=== PATIENT | female | born 1995 | race African-American/Black ===

== ENCOUNTER → 2018-02-16 | Outpatient (CLI) | payer OTHER ==
--- NOTE | 2018-02-16 17:03 | Diagnostic Imaging Report ---
PROCEDURE:TRANSVAGINAL ULTRASOUND COMPARISON:None. INDICATIONS:R/O [place] OVARIAN ABSCESS; occasional left-sided pelvic pain, acute cervicitis TECHNIQUE: Grayscale transverse and sagittal endovaginal images were obtained of the pelvis. FINDINGS: UTERUS: Measures 2.9 x 4.3 x 6.4 cm. The echotexture is normal. No evidence of mass. ENDOMETRIUM: Measures 0.6 cm. It is homogenously hyperechoic and normal. No fluid in the endometrial canal. No gestational sac. CERVIX: Normal. RIGHT OVARY: Measures 1.4 x 1.9 x 3.0 cm. The echotexture is normal. Several follicles are present. No evidence of mass. LEFT OVARY: Measures 2.0 x 2.8 x 3.5 cm. The echotexture is normal. Several follicles are present. No evidence of mass. There is no free fluid within the pelvis. No adnexal masses. CONCLUSION: 1. Normal uterus and endometrial stripe. 2. Normal ovaries. 3. No evidence of tubo-ovarian abscess. Dictated by: Valorie Winter M.D. on 02/16/2018 at 17:04 Electronically approved by: Valorie Winter M.D. on 02/16/2018 at 17:04
== END ==
LOC: US 16:04
PROVIDERS: ATTEND Family Medicine
DX: A54.03 Gonococcal cervicitis, unspecified (principal); N94.9 Unspecified condition associated with female genital organs and menstrual cycle
CPT/HCPCS: 76830